=== PATIENT | female | born 1935 | race African-American/Black ===

== ENCOUNTER 2016-04-02 22:56 | Inpatient (IN) | payer MEDICARE ==
--- NOTE | ~2016-04-02 | CT57 ---
[facility] A Service of [facility] & [facility] RADIOLOGY TEXT RESULTS PATIENT: JESSIE HANNA LOCATION: [facility] 339-01 : 37 UNIT #: [id number] AGE: [address]: Tim Velasquez MD SEX: F ORDER DR: [id number] [facility] [address] [place], [place] [address] [id number] I MR#: [id number] #: [id number] NAME: JESSIE HANNA. : 1935 SEX: F STUDY DATE/TIME: 04/04/2016 21:05 UNIT: [address] ROOM: [facility] STUDY DESCRIPTION: CT Chest Wo Cont Attending Physician: Tim Velasquez M.D. Ordering Physician: Katya aCstellon M.D. Primary Care Physician: Ramiro Gonzalez M.D. MEDICAL IMAGING REPORT This report is preliminary unless electronic signature is present EXAM CT chest without contrast. HISTORY Shortness of air and weakness for two weeks. This CT exam was performed with one or more of the following radiation dose reduction techniques: automatic exposure control, adjustment of mA and/or kV according to patient size, and iterative reconstruction. FINDINGS CT chest without contrast demonstrates no focal infiltrates or effusions. Mild atelectasis in the posterior, inferior right lower lobe. Small hiatal hernia. Single borderline enlarged inferior pretracheal node measuring 10 mm is stable compared to CT 03/20/2014, likely benign. No pericardial thickening or effusion. IMPRESSION 1. There is minimal atelectasis in the posterior right lower lobe. 2. No airspace infiltrates. 3. No pleural effusions. 4. There is a single borderline enlarged inferior pretracheal lymph node which is unchanged compared to CT 03/20/2014 and likely incidental. 5. Small hiatal hernia. Dictated by... Marco Mac M.D. THIS IS AN ELECTRONICALLY VERIFIED REPORT Marco Mac M.D. at 04/06/2016 4:13 PM DEBORAH/rik STS. [facility] A Service of [facility] & [facility] RADIOLOGY TEXT RESULTS PATIENT: JESSIE HANNA LOCATION: [facility] 339-01 : 37 UNIT #: [id number] AGE: [address]: Tim Velasquez MD SEX: F ORDER DR: TD: 04/05/2016 06:25 JOB #: [id number] MEDICAL IMAGING REPORT COPY
--- NOTE | ~2016-04-02 | DS ---
Unit #: [id number] #: [id number] Patient: JESSIE HANNA [id number] [address] [address] [id number] I MR#: [id number] NAME: JESSIE HANNA. ROOM: 339 Age: 81 Sex: F Admission Date: 04/02/2016 : 1935 Discharge Date: 04/05/2016 Attending Physician: Tim Velasquez M.D. Primary Care Physician: Ramiro Gonzalez M.D. DISCHARGE SUMMARY DIAGNOSIS ON ADMISSION 1. Status post fall. 2. Acute urinary tract infection. DIAGNOSES ON DISCHARGE 1. Status post fall at home. 2. Generalized weakness. 3. Recent acute Escherichia coli urinary tract infection. 4. Paroxysmal atrial fibrillation, new onset. 5. Chronic systolic congestive heart failure. 6. Coronary artery disease status post stent. 7. Hyperlipidemia. 8. Herpes zoster. 9. History of tobacco abuse. 10. Acute bronchitis. 11. Likely epistaxis. CONSULTATIONS Dr. Whitaker in pulmonary consultation. DIAGNOSTIC STUDIES IMAGING: The patient had a CT scan of the chest done without contrast, which as per Dr. Whitaker, did not reveal any acute finding. The official report is pending. The patient had a left hip x-ray done, which did not reveal any evidence of fracture or dislocation. LABS: The patient's urine culture was positive for Escherichia coli 20,000 to 30,000. It was resistant to Levaquin. HOSPITAL COURSE This 81-year-old female, who was discharged on April 02, 2016 to home, was readmitted same day after having a fall at home. The patient was admitted to the hospital. She also apparently had hemoptysis. Dr. Whitaker saw the patient in consultation and thought that the patient had a nosebleed, which caused hemoptysis, and the patient did not have true hemoptysis. CT scan did not reveal acute findings. The patient was started on Eliquis on previous admission because of atrial fibrillation. Cardiology saw the patient and recommended to stop that. Unit #: [id number] #: [id number] Patient: JESSIE HANNA It was decided that the patient needs to go to rehab, as son is not able to manage her at home. Therefore, the patient will be transferred today. The patient will also finish antibiotic for UTI and acute bronchitis. PHYSICAL EXAMINATION GENERAL: Today, the patient is comfortable, is not in acute distress. VITAL SIGNS: Vital signs reveal temperature of 97.4, pulse 85 per minute, respiratory rate 18 per minute and blood pressure 117/53. HEENT: Examination revealed no conjunctival congestion. Sclera is nonicteric. NECK: Neck is supple. Trachea is central. RESPIRATORY: Examination revealed decreased breath sounds bilaterally. There are no wheezes or crackles. HEART: Regular rate and rhythm. S1, S2. ABDOMEN: Abdomen is soft, nontender. Bowel sounds are present in all 4 quadrants. NEUROLOGIC: The patient is alert to person, place and time. Strength is 4+ bilaterally. SKIN: Skin is warm and dry. CONDITION Stable. ACTIVITIES As tolerated. DISCHARGE MEDICATIONS 1. DuoNeb Mini-Neb treatment q.4 hours scheduled. 2. Symbicort 2 inhalations b.i.d. 3. Magnesium oxide 400 mg p.o. daily. 4. Neurontin 300 mg p.o. t.i.d. 5. Lopressor 25 mg p.o. b.i.d. 6. Colace 100 mg p.o. b.i.d. 7. MiraLAX 17 grams p.o. daily. 8. Bumex 1 mg p.o. b.i.d. 9. Lipitor 40 mg p.o. q.h.s. 10. Enteric-coated aspirin 81 mg p.o. daily. 11. Protonix 40 mg p.o. daily. 12. Afrin nasal spray 2 sniffs b.i.d. for 3 days and then p.r.n. 13. Omnicef 300 mg p.o. b.i.d. for 5 days. NOTE: Please make note that the patient was treated with Rocephin in the hospital, and she did not have any allergic reaction, as she has history of penicillin allergy. DISPOSITION The patient will be transferred to [facility]. I tried to call the patient's son and was unable to get hold of him, but [facility] home[facility] stated that they have discussed with him. NOTE: The plan was discussed by calling Dr. Feliberto Whitaker. Dictated by... Tim Velasquez M.D. Unit #: [id number] #: [id number] Patient: JESSIE HANNA TD: 04/05/2016 13:20 JOB #: [id number] DISCHARGE SUMMARY X Tim Velasquez MD DISCHARGE SUMMARY
--- NOTE | ~2016-04-02 | HP ---
Unit #: [id number] #: [id number] Patient: JESSIE HANNA [id number] [address] [place], [place] [address] [id number] I MR#: [id number] NAME: JESSIE HANNA. ROOM: 72019 Age: 81 Sex: F Admission Date: 04/03/2016 : 1935 Attending Physician: Katya Castellon M.D. Primary Care Physician: Ramiro Gonzalez M.D. HISTORY AND PHYSICAL CHIEF COMPLAINT The patient was discharged yesterday from hospital, coming back after a fall at home, weakness, family requests senior care placement. DISCUSSION This is a 81-year-old female who has a past medical history of chronic systolic CHF, coronary artery disease, COPD, dyslipidemia. She was admitted with A fib with rapid ventricular rate. She was seen by cardiology in consultation. She was on Lovenox, and she was also on digoxin. Rate was controlled. She had acute kidney injury on chronic kidney disease, which was near baseline, and she had also developed UTI, which was E-coli in the urine as per notes. She completed antibiotic. She was discharged home today. She was brought back the same day because she said she had a fall at home and feeling weak, unable to take care of herself. She requests senior care placement. She was eventually admitted in observation for senior care placement. She denies any new complaints. PAST MEDICAL HISTORY 1. Coronary artery disease status post cardiac stent. 2. History of chronic systolic CHF with ejection fraction 30% to 35%. 3. Paroxysmal atrial fibrillation. 4. UTI, E-coli in the urine. 5. COPD. 6. Hypertension. 7. Hyperlipidemia. 8. History of herpes zoster with postherpetic neuralgia. PAST SURGICAL HISTORY 1. History of cardiac stent placement. 2. Appendectomy. 3. Cholecystectomy. 4. Bilateral tubal ligation. SOCIAL HISTORY The patient lives with her son. She continues to smoke a few cigarettes daily. Denies alcohol. She says she has been immobile since rehab. She says she spends most time in chair, but she says she went home today unable to ambulate. FAMILY HISTORY Notable for mother having arthritis. ALLERGIES Penicillin. Unit #: [id number] #: [id number] Patient: JESSIE HANNA MEDICATIONS FROM HOME 1. Colace 100 mg b.i.d. 2. MiraLAX 17 grams daily. 3. Metoprolol 25 mg b.i.d. 4. DuoNeb q.i.d. 5. Gabapentin 300 mg t.i.d. 6. Eliquis 5 mg b.i.d. 7. Magnesium 400 mg b.i.d. 8. Bumex 1 mg b.i.d. 9. Protonix 40 mg daily. 10. Aspirin 81 mg daily. 11. Lipitor 40 mg daily. 12. Symbicort 80/4.5 mcg 2 puffs b.i.d. REVIEW OF SYSTEMS Twelve-point review of systems is negative except as in history of present illness. PHYSICAL EXAMINATION GENERAL: Middle-aged female lying in bed comfortably, not in any distress. She is alert, awake, oriented x3. CURRENT VITALS: Temperature is 98, heart rate 70, respirations 23, blood pressure 103/90. HEENT: Pupils are equal and reactive to light. Head is normocephalic and atraumatic. NECK: Neck is supple. No JVD. HEART: S1, S2. Regular rhythm. LUNGS: Decreased air entry but no rhonchi, no wheezing. ABDOMEN: Abdomen is soft, nontender, nondistended. Bowel sounds positive. EXTREMITIES: Inspection is normal. No cyanosis. No clubbing. No edema. NEUROLOGIC: No focal neurologic deficits. DIAGNOSTIC STUDIES LABORATORY WORKUP: White count 8.5, hemoglobin 13, hematocrit 45, platelets 175. Chemistry - Sodium 140, potassium 5.1, glucose 84, BUN 31, creatinine 1.3. LFTs within normal limits. UA shows (1) positive, WBC 10-25. ASSESSMENT AND PLAN 1. UTI, recent E-coli in the urine. She was treated with doxycycline while she was in the hospital. Start on Rocephin. Follow up repeat culture. 2. Fall at home with generalized weakness and patient and family request senior care placement. Will ask corporate planner for senior care placement. 3. History of paroxysmal atrial fibrillation. 4. Chronic systolic CHF, ejection fraction 30% to 35%. 5. Chronic kidney disease. 6. Coronary artery disease status post stent. 7. COPD. 8. Dyslipidemia. 9. DVT prophylaxis. She is on Eliquis. 1. Dictated by Fan Sargent M.D. Unit #: [id number] #: [id number] Patient: CYNDIJESSIEALEJO RICHMOND/carter TD: 04/03/2016 11:18 JOB #: [id number] HISTORY AND PHYSICAL X X HISTORY AND PHYSICAL
--- NOTE | ~2016-04-02 | CO ---
Unit #: [id number] #: [id number] Patient: JESSIE HANNA [id number] [facility]. [place], [place] [address] [id number] I MR#: [id number] NAME: JESSIE HANNA ROOM: 339 Age: 81 Sex: F Admission Date: 04/02/2016 : 1935 Attending Physician: Tim Velasquez M.D. Primary Care Physician: Ramiro Gonzalez M.D. Consultation Date: 04/04/2016 CONSULTATION REPORT REASON FOR CONSULTATION Possible hemoptysis. HISTORY OF PRESENT ILLNESS A 81-year-old female, who carries a diagnosis of COPD, ongoing active tobacco use up until recently. She was recently at this institution from the to the . She apparently had some troubles with shingles and was ultimately discharged. She was found to have atrial fibrillation, left ventricular dysfunction, urinary tract infection. She went home and fell and was brought back to the emergency room and admitted. There was a question of hemoptysis and we were asked to evaluate the patient. Her initial complaint to me was some abdominal discomfort. She then complained of a nosebleed. When I asked her if she thought that the blood she coughed was from her nose, she says "I can't tell." She denied hematemesis. There is no shortness of breath, pleurisy, sputum production, fever or wheezing. Note that the patient is a somewhat poor historian. PAST MEDICAL HISTORY Remarkable for 1. COPD. 2. Left ventricular dysfunction. 3. Coronary artery disease. 4. Paroxysmal atrial fibrillation. 5. History of urinary tract infections. 6. Hypertension. 7. Hyperlipidemia. 8. History of herpes zoster with postherpetic neuralgia. MEDICATIONS At home, she is on an inhaler which she cannot identify, she states it is the same one here, which is Symbicort. Other medications include Lipitor, aspirin, Protonix, Bumex, magnesium, Eliquis, gabapentin, mini nebs, metoprolol, MiraLAX and Colace. ALLERGIES Penicillin, unknown reaction. FAMILY HISTORY No definite familial lung disease. SOCIAL HISTORY She smoked all her life up until last week. She states she can walk easily, but I suspect otherwise and it is charted that she is basically is Unit #: [id number] #: [id number] Patient: JESSIE HANNA bed to chair. REVIEW OF SYSTEMS Basically negative, somewhat unreliable. She has some side pain and it is unclear if this represents her zoster. She denies nausea, vomiting, hematemesis, melena, hematochezia, hematuria, dysuria, focal weakness, paresthesias, leg pain, swelling, headache, dizziness, chest pain, or palpitations. She basically denies everything, but she also told me she could walk without difficulty. PHYSICAL EXAMINATION VITAL SIGNS: Reveals a patient, who is afebrile, pulse 63, respiratory rate is 18, blood pressure is 96/53, 5 feet 7 inches, 225, BMI of 34. HEENT: Pupils are equal, round, and reactive to light. Sclerae anicteric. Head atraumatic. NECK: Supple. No supraclavicular or cervical adenopathy appreciated. Mucous membranes moist. CHEST: No wheeze, stridor, or consolidation. Exam is somewhat limited. CARDIAC: Reveals regular rate and rhythm. No pathologic murmur, rub, or gallop. ABDOMEN: Soft and nontender. No hepatomegaly or rebound. EXTREMITIES: Reveal no clubbing, cyanosis, or edema. No calf tenderness. SKIN: Warm and dry without rash or diaphoresis. NEUROLOGIC: She would not cooperate with full neurologic exam, but I did not appreciate any definite focal, muscle or sensory deficits. DIAGNOSTIC STUDIES LABORATORY RESULTS: BUN is 35, creatinine is 1.6, BNP was over 500 on the 24 and has not been rechecked. White blood cell count is 10, hemoglobin is 14, platelet count is 156. Urinalysis in the past was abnormal, but has not been rechecked. No recent cultures, although urine from the is growing gram-negative rods and low colony count. CARDIOVASCULAR STUDIES: Rhythm strips, sinus with occasional PACs and PVCs. IMPRESSION 1. Hemoptysis versus epistaxis in a patient with chronic obstructive pulmonary disease and longstanding tobacco use. Chest x-ray a few days ago was unremarkable. 2. Recent urinary tract infection. 3. Chronic obstructive pulmonary disease without active bronchospasm. 4. Weakness and falls. 5. Left ventricular dysfunction. 6. Paroxysmal atrial fibrillation. 7. Medical problems listed above. PLAN CT scan of the chest will be performed without contrast. Certainly, no smoking is a great benefit. We will continue Symbicort and as needed albuterol mini nebs. We will check her oxygenation needs as she is on oxygen now, but room air sats in the ER were adequate. Thank you very much for allowing me to participate in the care of Ms. Hanna. Dictated by... Unit #: [id number] #: [id number] Patient: JESSIE HANNA M.D. WOL/kee TD: 04/04/2016 22:28 JOB #: [id number] CONSULTATION REPORT X Feliberto Whitaker MD X CONSULTATION REPORT
--- NOTE | ~2016-04-02 | CR72 ---
[facility] A Service of [facility] & [facility] RADIOLOGY TEXT RESULTS PATIENT: JESSIE HANNA LOCATION: [facility] 339-01 : 37 UNIT #: [id number] AGE: [address]: Katya Castellon MD SEX: F ORDER DR: [id number] [facility] [address] [place], [place] [address] [id number] I MR#: [id number] Acc #: [id number] NAME: JESSIE HANNA. : 1935 SEX: F STUDY DATE/TIME: 04/02/2016 21:46 UNIT: CEDOF ROOM: 14320 STUDY DESCRIPTION: CR Chest Single View Portable Attending Physician: Fan Sargent M.D. Ordering Physician: Adriel Montenegro M.D. Primary Care Physician: Ramiro Gonzalez M.D. MEDICAL IMAGING REPORT This report is preliminary unless electronic signature is present EXAM Portable chest INDICATIONS 81-year-old female with weakness and left hip pain after falling 2 days ago. Comparison with 03/30/2016. FINDINGS Stable cardiomegaly. No definite airspace infiltrate. Linear atelectasis left base. Visualized osseous structures unremarkable. IMPRESSION No active disease Dictated by... Anoop Khoury M.D. THIS IS AN ELECTRONICALLY VERIFIED REPORT Anoop Khoury M.D. at 04/05/2016 6:33 AM NAKUL/ashley TD: 04/03/2016 05:19 JOB #: [id number] MEDICAL IMAGING REPORT COPY
--- NOTE | ~2016-04-02 | CR150 ---
[facility] A Service of [facility] & [facility] RADIOLOGY TEXT RESULTS PATIENT: JESSIE HANNA LOCATION: [facility] 339-01 : 37 UNIT #: [id number] AGE: [address]: Katya Castellon MD SEX: F ORDER DR: [id number] [facility] [address] [place], [place] [address] [id number] I MR#: [id number] Acc #: [id number] NAME: JESSIE HANNA. : 1935 SEX: F STUDY DATE/TIME: 04/02/2016 21:47 UNIT: CEDOF ROOM: 90981 STUDY DESCRIPTION: CR Hip Min 2 Views Lt Attending Physician: Fan Sargent M.D. Ordering Physician: Adriel Montenegro M.D. Primary Care Physician: Ramiro Gonzalez M.D. MEDICAL IMAGING REPORT This report is preliminary unless electronic signature is present EXAM Left hip 2 views INDICATIONS 81-year female with left hip pain after falling 2 days ago. No comparisons are available. FINDINGS No evidence of fracture or dislocation. Mild joint space narrowing in both hips. IMPRESSION No evidence of fracture or dislocation Dictated by... Anoop Khoury M.D. THIS IS AN ELECTRONICALLY VERIFIED REPORT Anoop Khoury M.D. at 04/05/2016 6:33 AM NAKUL/ashley TD: 04/03/2016 05:21 JOB #: [id number] MEDICAL IMAGING REPORT COPY
--- NOTE | ~2016-04-02 | EKG ---
PATIENT: JESSIE HANNA UNIT #: [id number] Ventricular Rate: 77 BPM Atrial Rate: 77 BPM P-R Interval: 122 ms QRS Duration: 124 ms Q-T Interval: 420 ms QTC Calculation(Bezet): 475 ms P [place]: 7 degrees Calculated R [place]: -96 degrees Calculated T [place]: 62 degrees Diagnosis Line: Sinus rhythm with Premature atrial complexes Diagnosis Line: Right bundle branch block Diagnosis Line: Inferior infarct (cited on or before 31-JAN-2016) Diagnosis Line: T wave abnormality, consider lateral ischemia Diagnosis Line: Abnormal ECG Diagnosis Line: When compared with ECG of 02-APR-2016 21:58, Diagnosis Line: Inverted T waves have replaced nonspecific T wave Diagnosis Line: abnormality in Lateral leads Diagnosis Line: Confirmed by CHEVY TAY MD ([id number]) on Diagnosis Line: 04/04/2016 9:55:17 PM INTERPRETING MD: RAE
--- NOTE | ~2016-04-02 | EKG ---
PATIENT: JESSIE HANNA UNIT #: [id number] Ventricular Rate: 78 BPM Atrial Rate: 78 BPM P-R Interval: 172 ms QRS Duration: 124 ms Q-T Interval: 388 ms QTC Calculation(Bezet): 442 ms P [place]: 82 degrees Calculated R [place]: -92 degrees Calculated T [place]: 33 degrees Diagnosis Line: Sinus rhythm with Premature atrial complexes Diagnosis Line: Right bundle branch block Diagnosis Line: Inferior infarct (cited on or before 31-JAN-2016) Diagnosis Line: Abnormal ECG Diagnosis Line: When compared with ECG of 31-MAR-2016 13:07, Diagnosis Line: Sinus rhythm has replaced Atrial fibrillation Diagnosis Line: Nonspecific T wave abnormality, improved in Diagnosis Line: Lateral leads Diagnosis Line: Confirmed by ANNE VALENTIN MD ([id number]) on Diagnosis Line: 04/03/2016 9:43:13 AM INTERPRETING MD: HOMERO SARABIA
[2016-04-02 22:11] LABS: URINE SOURCE CLEAN CATCH
[2016-04-02 22:25] LABS: URINE APPEARANCE CLEAR; URINE BILIRUBIN NEG (NEG); URINE BLOOD 3+ (NEG); URINE COLOR YELLOW; URINE GLUCOSE NEG (NEG); URINE KETONE NEG (NEG); URINE LEUKOCYTE ESTERASE 1+ (NEG); URINE NITRATE NEG (NEG); URINE PH 8.5 (5-8); URINE PROTEIN 1+ (NEG); URINE SPECIFIC GRAVITY 1.013 (1.003-1.035)
[2016-04-02 22:27] LABS: CULTURE INDICATED? YES; URBCS1 AUWI 100-200 /[HPF] (0-2); URINE BACTERIA AUWI NEG (NEGATIVE); URINE SQUAMOUS EPITHELIAL CELL OCC /[HPF]
[~2016-04-02 22:56] MED LIST: ALB/IPRATROPIUM/1 E2 INH; BAYER CHEWABLE81 MG PO; BUMETANIDE0.5 MG PO; CLOPIDOGREL BIS75 MG PO; CLOPIDOGREL75 MG PO; CRESTOR10 MG PO; DOCUSATE SODIU100 MG PO; ELIQUIS5 MG PO; GABAPENTIN300 M2 PO; ISOSORBIDE MON120 M1 PO; LIPITOR40 MG PO; LISINOPRIL20 MG PO; MAGNESIUM400 MG PO; METOPROLOL SUCC25 MG PO; METOPROLOL TAR25 MG PO; MIRALAX17 GM PO; MONTELUKAST SOD10 MG PO; MUCUS RELIEF600 M1 PO; PANTOPRAZOLE SO40 MG PO; PREDNISONE10 MG PO; PROTONIX PO; RANEXA500 MG PO; SYMBICORT80 INH; TASPRIN325 MG PO; VIBRAMYCIN100 M1 PO; XARELTO20 MG PO
[2016-04-02 23:20] LABS: BASOPHIL# 0.1 X10e3 (0-0.3); BASOPHIL% 0.8 % (0-2.5); EOSINOPHIL# 0.2 X10e3 (0-0.7); EOSINOPHIL% 2.2 % (0.0-7.0); HEMATOCRIT 45.5 % (35.0-45.0); HEMOGLOBIN 13.5 gm/dL (12.0-16.0); LYMPHOCYTE# 1.2 X10e3 (1.0-3.5); LYMPHOCYTE% 13.8 % (17.0-45.0); MEAN CORPUSCULAR HEMOGLOBIN 22.9 PG (28-34); MEAN CORPUSCULAR HGB CONC 29.8 g/dL (30-36); MEAN PLATELET VOLUME 9.5 FL (6.5-11.5); MONOCYTE# 1.1 X10e3 (0-1.0); MONOCYTE% 12.5 % (3.0-12.0); NEUTROPHIL% 70.7 % (40-75); PLATELET COUNT 175 X10e3 (140-420); RED BLOOD COUNT 5.91 X10e (3.90-5.30); WHITE BLOOD COUNT 8.5 X10e3 (4.0-10.5)
[2016-04-02 23:28] LABS: ALBUMIN SERUM 3.3 g/dL (3.5-5.0); BILIRUBIN, DIRECT 0.4 mg/dL (0.0-0.2); BILIRUBIN,TOTAL 1.4 mg/dL (0.2-2.0); BUN/CREATININE RATIO 18.23; CALCIUM SERUM 9.1 mg/dL (8.4-10.2); CREATININE SERUM 1.7 mg/dL (0.6-1.4); GLOM FILT RATE Estimated 37.3 mL/min (>60); POTASSIUM 5.1 mmol/L (3.5-5.1); PROTEIN TOTAL SERUM 7.6 g/dL (6.0-8.3)
[2016-04-02 23:29] LABS: DIFF IND YES
[2016-04-02 23:47] LABS: ROULEAUX MODERATE
[2016-04-02 23:48] LABS: HYPOCHROMIA SL; PLATELET ESTIMATE NORMAL (NORMAL)
[2016-04-03 04:34] LABS: BASOPHIL# 0.1 X10e3 (0-0.3); BASOPHIL% 1.1 % (0-2.5); EOSINOPHIL# 0.3 X10e3 (0-0.7); EOSINOPHIL% 2.9 % (0.0-7.0); HEMATOCRIT 43.7 % (35.0-45.0); HEMOGLOBIN 13.2 gm/dL (12.0-16.0); LYMPHOCYTE# 1.4 X10e3 (1.0-3.5); LYMPHOCYTE% 14.5 % (17.0-45.0); MEAN CELL VOLUME 76.7 FL (83-96); MEAN CORPUSCULAR HEMOGLOBIN 23.1 PG (28-34); MEAN CORPUSCULAR HGB CONC 30.1 g/dL (30-36); MEAN PLATELET VOLUME 9.5 FL (6.5-11.5); MONOCYTE# 1.2 X10e3 (0-1.0); NEUTROPHIL# 6.9 X10e3 (1.5-7.1); NEUTROPHIL% 69.5 % (40-75); PLATELET COUNT 186 X10e3 (140-420); RED CELL DISTRIBUTION WIDTH 28.4 % (11.0-15.5); WHITE BLOOD COUNT 9.9 X10e3 (4.0-10.5)
[2016-04-03 04:35] LABS: DIFF IND NO
[2016-04-03 04:52] LABS: BUN/CREATININE RATIO 18.88; CREATININE SERUM 1.8 mg/dL (0.6-1.4); GLOM FILT RATE Estimated 34.9 mL/min (>60); POTASSIUM 4.6 mmol/L (3.5-5.1)
[2016-04-04 05:39] LABS: HEMATOCRIT 46.4 % (35.0-45.0); HEMOGLOBIN 14.1 gm/dL (12.0-16.0); MEAN CELL VOLUME 77.8 FL (83-96); MEAN CORPUSCULAR HEMOGLOBIN 23.6 PG (28-34); MEAN CORPUSCULAR HGB CONC 30.3 g/dL (30-36); MEAN PLATELET VOLUME 9.9 FL (6.5-11.5); RED BLOOD COUNT 5.95 X10e (3.90-5.30); RED CELL DISTRIBUTION WIDTH 27.6 % (11.0-15.5)
[2016-04-04 09:42] LABS: POTASSIUM 4.2 mmol/L (3.5-5.1)
[2016-04-04 09:44] LABS: BUN/CREATININE RATIO 21.87; CREATININE SERUM 1.6 mg/dL (0.6-1.4)
[2016-04-05 08:13] LABS: HEMATOCRIT 38.7 % (35.0-45.0); MEAN CELL VOLUME 76.7 FL (83-96); MEAN CORPUSCULAR HEMOGLOBIN 23.2 PG (28-34); MEAN CORPUSCULAR HGB CONC 30.2 g/dL (30-36); MEAN PLATELET VOLUME 9.7 FL (6.5-11.5); RED BLOOD COUNT 5.04 X10e (3.90-5.30); WHITE BLOOD COUNT 9.7 X10e3 (4.0-10.5)
[2016-04-05 08:14] LABS: HEMOGLOBIN 11.7 gm/dL (12.0-16.0)
[2016-04-05 08:34] LABS: BUN/CREATININE RATIO 25.33; CALCIUM SERUM 8.4 mg/dL (8.4-10.2); CREATININE SERUM 1.5 mg/dL (0.6-1.4); GLOM FILT RATE Estimated 43.1 mL/min (>60); POTASSIUM 3.9 mmol/L (3.5-5.1)
== END 2016-04-05 15:30 | DRG 690 ==
LOC: CED 22:56 → CEDOF 23:59 → C3A PCU 04-03 16:08
PROVIDERS: Emergency Medicine; Internal Medicine Endocrinology, Diabetes & Metabolism
DX: N39.0 Urinary tract infection, site not specified (principal); I48.0 Paroxysmal atrial fibrillation; B02.29 Other postherpetic nervous system involvement; I13.0 Hypertensive heart and chronic kidney disease with heart failure and stage 1 through stage 4 chronic kidney disease, or unspecified chronic kidney disease; I50.22 Chronic systolic (congestive) heart failure; B02.9 Zoster without complications; J44.9 Chronic obstructive pulmonary disease, unspecified; I25.10 Atherosclerotic heart disease of native coronary artery without angina pectoris; E78.5 Hyperlipidemia, unspecified; Z88.0 Allergy status to penicillin; F17.210 Nicotine dependence, cigarettes, uncomplicated; R53.1 Weakness; B96.20 Unspecified Escherichia coli [E. coli] as the cause of diseases classified elsewhere; N18.9 Chronic kidney disease, unspecified; R04.0 Epistaxis; J20.9 Acute bronchitis, unspecified; W19.XXXA Unspecified fall, initial encounter
CPT/HCPCS: 36415; 51702; 71010; 71020; 71250; 73502; 80048; 80053; 80076; 80162; 81003; 82550; 82553; 83735; 83880; 84132; 84443; 84484; 85025; 85027; 85610; 87040; 87070; 87086; 87088; 87186; 87205; 93005; 94640; 94664; 94760; 96365; 96366; 97110; 97162; 97166; 97530; 97535; 99285; 99291; G8978-GP; G8979-GP; G8987-GO; G8988-GO; J0696; J1160; J1650; J1956; J2270; J3475